=== PATIENT | male | born 1995 | race Caucasian/White ===

== ENCOUNTER 2023-09-23 10:17 | Emergency (ER) | payer BC ==
[2023-09-23 10:25] VITALS: BP 127/71; PULSE 105; RESP 18; TEMP 98; BMI 20.3
[2023-09-23] MEDS ORDERED: IBUPROFEN 400 MG TABLET (FP) PO ONE (11:27)
[2023-09-23] MEDS: IBUPROFEN 400 MG TABLET (FP) PO ONE (11:28)
== END 2023-09-23 13:13 | disposition home or self-care (01) ==
LOC: JERFT 10:17
DX: S92.412A Displaced fracture of proximal phalanx of left great toe, initial encounter for closed fracture (principal); W50.0XXA Accidental hit or strike by another person, initial encounter
CPT/HCPCS: 73630-TC-LT; 99283-25